=== PATIENT | male | born 1995 | race Two or more races ===

== ENCOUNTER → 2018-05-26 | Emergency (ER) | payer OTHER ==
[~2018-05-26] VITALS: Ht 170.2 cm; Wt 90.7 kg
[~2018-05-26] MED LIST: IBUPROFEN600 MG ORAL
--- NOTE | 2018-05-26 12:36 | Emergency Room Report ---
History of Present Illness General Chief Complaint: Hand Pain Present Illness HPI Patient's a 23-year-old male who presented after a recent right hand injury. Patient states that he fell off of the [employer]. Injury occurred greater than 1 week prior to arrival. 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 The patient denies any numbness or tingling. Patient states that he had moderate pain which had been somewhat improving. He reported having increased pain with ulnar deviation of the wrist. The patient denied any had difficulty moving his fingers. Allergies: Coded Allergies: No Known Allergies (Unverified , 05/26/18) Patient History Past Medical History: see triage record Reviewed Nursing Documentation: PMH: Agreed; PSxH: Agreed Review of Systems All Other Systems: negative except mentioned in HPI Physical Exam General Appearance: well appearing, no apparent distress, alert, GCS 15 Head: normocephalic, atraumatic ENT: hearing grossly normal, normal voice Neck: full range of motion, supple Respiratory: no respiratory distress, speaking full sentences Musculoskeletal: normal range of motion, other - normal hand function, tenderness to hypothenar muscles, no bruising Neurologic: normal inspection, alert, oriented x3, normal gait Psychiatric: mood/affect normal Skin: no rash, other - healing abrasion Medical Decision Making Diagnostic Impression: Primary Impression: Contusion of hand ER Course Patient presented for right wrist pain after fall. Differential diagnosis included was not limited to fracture, dislocation, sprain, scaphoid fracture among others.Because of complexity of patient's case imaging studies were ordered.X-ray imaging of the right hand 4 views interpreted by me showed normal bony alignment without evident fracture. Patient is given protrusion for ibuprofen. He is advised to recheck with his primary care physician for further evaluation and treatment. Patient was advised that he may need further imaging if pain persists or worsens Status: improved Disposition: HOME, SELF-CARE Condition: Stable Scripts Ibuprofen* (MOTRIN*) 600 Mg Tablet 600 MG ORAL Q8H PRN for For Pain, #30 TAB 0 Refills Prov: Corwin Cohen MD 05/26/18 Corwin Cohen MD May 26, 2018 12:36
[2018-05-26 13:11] VITALS: BP 143/91
--- NOTE | 2018-05-26 16:22 | Diagnostic Imaging Report ---
Indication: Reason For Exam: PAIN Technique: 3 views right hand Comparison: none Findings: No acute fractures. No dislocations. The joint spaces are preserved. Impression: Negative
== END | disposition home or self-care (01) ==
LOC: EMR 13:05
DX: S60.221A Contusion of right hand, initial encounter (principal); W05.1XXA Fall from non-moving nonmotorized scooter, initial encounter; Y92.9 Unspecified place or not applicable
CPT/HCPCS: 99283

== ENCOUNTER 2018-08-09 15:22 | Emergency (ER) | payer OTHER ==
[~2018-08-09] VITALS: Ht 170.2 cm; Wt 86.2 kg
--- NOTE | 2018-08-09 15:56 | NUR ---
ED Nurse Note:pt. came with bilateral knees pain ,no injury reported, pain meds given x-ray done
--- NOTE | 2018-08-09 15:56 | Emergency Room Report ---
History of Present Illness General Chief Complaint: Lower Extremity Injury Source: Patient Present Illness HPI 23-year-old male patient presents the ER complaining of bilateral knee pain for over 1 week. Ports pain since it began after running on a treadmill. States that he initially thought it was runner's knee however pain symptoms did not improve. Reports he was swimming a few days ago and pain symptoms worsened. Reports took Motrin one time. States has not taken any other oral medication since that time, states has used topical CBD oil she does help alleviate pain symptoms. Denies swelling. Reports pain is on the medial aspect of his bilateral knees. Denies history of knee pain or surgery. Denies fever, chest pain, shortness breath, vomiting. Denies hearing a "pop" or "snap" in bilateral knees. Allergies: Coded Allergies: No Known Allergies (Unverified , 05/26/18) Patient History Past Medical History: see triage record Reviewed Nursing Documentation: PMH: Agreed; PSxH: Agreed Nursing Documentation-PMH Past Medical History: No Stated History Review of Systems All Other Systems: negative except mentioned in HPI Physical Exam Vital Signs Date Time Temp Pulse Resp B/P (MAP) Pulse Ox O2 Delivery O2 Flow Rate FiO2 08/09/18 15:29 98.8 81 20 126/85 98 Room Air Sp02 EP Interpretation: reviewed, normal General Appearance: well appearing, no apparent distress, alert, GCS 15, non- toxic Head: normocephalic, atraumatic Eyes: bilateral eye normal inspection, bilateral eye PERRL ENT: hearing grossly normal, normal pharynx, no angioedema, normal voice, uvula midline, moist mucus membranes Neck: full range of motion Respiratory: lungs clear, normal breath sounds, no rhonchi, no respiratory distress, no accessory muscle use, no wheezing, speaking full sentences Cardiovascular #1: regular rate, rhythm, no edema Gastrointestinal: non tender, soft, no mass, non-distended, no guarding, no rebound Musculoskeletal: back normal, digits/nails normal, gait/station normal, normal range of motion, no calf tenderness, other - NVI, no laxity with varus or valgus stress, negative anterior posterior drawer sign, negative bulge sign, tender - Anterior medial lateral aspect of the knee bilaterally Neurologic: alert, oriented x3, responsive, motor strength/tone normal, sensory intact Psychiatric: mood/affect normal Skin: no rash Lymphatic: no adenopathy Medical Decision Making PA Attestation Dr. Zazueta is my supervising Physician whom patient management has been discussed with. Diagnostic Impression: Primary Impression: Bilateral knee pain ER Course Pt. presents to the ED c/o bilateral knee pain. Ddx considered but are not limited to fracture, sprain, strain, contusion, dislocation, tendonitis, runner's knee, meniscal tear, inflammatory process. No erythema, no warmth to touch, no fever, nontoxic appearing, low suspicion for septic joint. Soft compartments, no pulselessness, no pallor, no paresthesias, low suspicion for compartment syndrome at this time. Vital signs: are WNL, pt. is afebrile Ordered X-ray and pain medication. ER COURSE Provided with pain medication. An X-ray of the right knee shows no acute disease per the preliminary reading. An X-ray of the left knee shows no acute disease per the preliminary reading. Likely meniscal irritation or tendinopathy from overuse. Advised patient on rest and avoiding overuse and taking ibuprofen pain symptoms. Follow-up with primary care provider to discuss further treatment and referral. Patient declines Abdi wrap and crutches. Patient ambulating independently in the ER without difficulty. Patient instructed on RICE method: rest, ice, compression, elevation. Patient instructed on rest, ice and heat. Patient instructed to be WBAT Contact information for orthopedic urgent care provided, follow-up with urgent care if unable to followup with primary care provider and get referral to [facility] traffic control specialist center. Followup with primary care provider. Discuss referral to ortho/pain management/ PT as needed. Discuss further imaging with MRI/CT as needed. DISCHARGE: -Rx provided for Ibuprofen At this time pt. is stable for d/c to home. Patient is resting comfortably, in no acute distress, nontoxic appearing, talking without difficulty. Will provide printed patient care instructions, and any necessary prescriptions. Patient instructed to follow with primary care provider in 3 - 5 days and to request further follow-up as needed. Care plan and follow up instructions have been discussed with the patient prior to discharge. Take medications as directed. Patient questions asked and answered. Patient reports understanding and agreement to treatment plan. ER precautions given, patient instructed to return to ER immediately for any new or worsening of symptoms. - Please note that this Emergency Department Report was dictated using [employer] room worker technology software, occasionally this can lead to erroneous entry secondary to interpretation by the dictation equipment. Last Vital Signs Date Time Temp Pulse Resp B/P (MAP) Pulse Ox O2 Delivery O2 Flow Rate FiO2 08/09/18 15:29 98.8 81 20 126/85 98 Room Air Status: improved Disposition: HOME, SELF-CARE Condition: Stable Scripts Ibuprofen* (MOTRIN*) 600 Mg Tablet 600 MG ORAL Q8H PRN for For Pain, #30 TAB 0 Refills Prov: Andrew Aguilar 08/09/18 Referrals: NON PHYSICIAN (PCP) Patient Instructions: Knee Pain, [id number], Medial Collateral Knee Ligament Sprain With Phase I Rehab-SportsMed, Tendinitis Additional Instructions: Patient instructed to follow up with primary care provider and discuss further referral to orthopedics/physical therapy/pain management as needed. If unable to followup with PCP, followup with orthopedic urgent care in 5-7 days , call to schedule appointment. Patient instructed on RICE method: rest, ice, compression, elevation. Patient instructed to WBAT. Take medications as directed. Patient questions asked and answered. ER precautions given, patient instructed to return to ER immediately for any new or worsening of symptoms. [facility] [address] [facility] [address] [facility], [id number] [email or web address] Andrew Aguilar Aug 09, 2018 15:56
--- NOTE | 2018-08-09 16:17 | Diagnostic Imaging Report ---
Indication: Left knee pain 3 views of the left knee were obtained. Findings: No acute fracture, malalignment, or joint effusion are identified. Joint space is relatively well-maintained. Impression: Negative for acute injury
--- NOTE | 2018-08-09 16:18 | Diagnostic Imaging Report ---
Indication: Pain Knee pain/trauma 3 views of the right knee were obtained. Findings: No acute fracture, malalignment, or joint effusion are identified. Joint space is relatively well-maintained. Impression: Negative for acute findings.
[2018-08-09] MEDS ORDERED: IBUPROFEN600 MG ORAL (16:40)
[2018-08-09 16:51] VITALS: BP 125/87
--- NOTE | 2018-08-09 16:53 | NUR ---
ED Nurse Note: Patient is medically ceared to leave the ED. Patient is alert and oriented x4, ambulatory with a steady gait, VSS, patient acknowledges the need to follow up with PMD within a week if symptoms dont improve, prescriptions given to patient, all belongings sent home. ID band removed.
== END 2018-08-09 16:53 | disposition home or self-care (01) ==
LOC: EMR 15:50
DX: M25.562 Pain in left knee (principal); M25.561 Pain in right knee
CPT/HCPCS: 99284